=== PATIENT | female | born 1980 | race Caucasian/White ===

== ENCOUNTER 2017-07-20 17:37 | Emergency (ER) | payer MEDICAID ==
[2017-07-20] MEDS ORDERED: 0.9 % SODIUM CHLORIDE 1,000 ML BAG IV ONE (18:02)
--- NOTE | 2017-07-20 18:03 | Emergency Department Record ---
History of Present Illness - General Source: Patient Mode of Arrival: Ambulatory - History of Present Illness Initial comments: patient started having vomiting and diarrhea for 3 days and she has abdominal pain. Yesterday vomiting times 15 and diarrhea times 4 and same 2 days ago. Stools are black, no peptobismal, Patient denies vomiting blood or black material. Onset/Timin -: Days(s) Severity: Moderate Consistency: Intermittent, Getting worse Improves with: None Worsens with: None - Fanny Coma Scale Eye Response: (4) Open spontaneously Motor Response: (6) Obeys commands Verbal Response: (5) Oriented Priddy Total: 15 <Black Martínez - Last Filed: 07/20/17 19:17> <Yari Thornton - Last Filed: 07/20/17 20:41> - General Chief complaint: Dehydration Stated complaint: FEELS FAINT Time Seen by Provider: 07/20/17 17:57 - Related Data Home Medications Medication Instructions Recorded Confirmed Last Taken Escitalopram Oxalate [Lexapro] 20 mg PO DAILY 07/20/17 07/20/17 07/20/17 Hydroxyzine Pamoate [Vistaril] 25 mg PO Q6H 07/20/17 07/20/17 07/20/17 Allergies Allergy/AdvReac Type Severity Reaction Status Date / Time Penicillins Allergy HIVES Verified 07/20/17 17:46 Travel Screening - Travel/Exposure Within Last 30 Days Have you traveled within the last 30 days?: No - Travel/Exposure Within Last Year Have you traveled outside the [place] in the last year?: No - Additonal Travel Details Have you been exposed to anyone with a communicable illness?: No - Travel Symptoms Symptom Screening: None <Black Martínez - Last Filed: 07/20/17 19:17> Review of Systems Reviewed: No additional complaints except as noted below Constitutional: Reports: As per HPI. Denies: Chills, Fever, Malaise, Night sweats, Weakness, Weight change Eyes: Reports: As per HPI. Denies: Eye discharge, Eye pain, Photophobia, Vision change ENT: Reports: As per HPI. Denies: Congestion, Dental pain, Ear pain, Epistaxis , Hearing loss, Throat pain Respiratory: Reports: As per HPI. Denies: Cough, Dyspnea, Hemoptysis, Stridor, Wheezes Cardiovascular: Reports: As per HPI. Denies: Arrhythmia, Chest pain, Dyspnea on exertion, Edema, Murmurs, Orthopnea, Palpitations, Paroxysmal nocturnal dyspnea, Rheumatic Fever, Syncope Endocrine: Reports: As per HPI. Denies: Fatigue, Heat or cold intolerance, Polydipsia, Polyuria Gastrointestinal: Reports: As per HPI, Abdominal pain, Diarrhea, Vomiting. Denies: Constipation, Hematemesis, Hematochezia, Melena, Nausea Genitourinary: Reports: As per HPI. Denies: Abnormal menses, Discharge, Dyspareunia, Dysuria, Frequency, Hematuria, Incontinence, Retention, Urgency Musculoskeletal: Reports: As per HPI. Denies: Arthralgia, Back pain, Gout, Joint swelling, Myalgia, Neck pain Skin: Reports: As per HPI. Denies: Bruising, Change in color, Change in hair/ nails, Lesions, Pruritus, Rash Neurological: Reports: As per HPI. Denies: Abnormal gait, Confusion, Headache, Numbness, Paresthesias, Seizure, Tingling, Tremors, Vertigo, Weakness Psychiatric: Reports: As per HPI. Denies: Anxiety, Auditory hallucinations, Depression, Homicidal thoughts, Suicidal thoughts, Visual hallucinations Hematological/Lymphatic: Reports: As per HPI. Denies: Anemia, Blood Clots, Easy bleeding, Easy bruising, Swollen glands <Black Martínez - Last Filed: 07/20/17 19:17> Past Medical History - SOCIAL HISTORY Smoking Status: Former smoker Alcohol Use: Occasional Drug Use: None - RESPIRATORY Hx Respiratory Disorders: No - CARDIOVASCULAR Hx Cardio Disorders: No - NEURO Hx Neuro Disorders: No - GI Hx GI Disorders: No - Hx Genitourinary Disorders: No - ENDOCRINE Hx Endocrine Disorders: No - MUSCULOSKELETAL Hx Musculoskeletal Disorders: No - PSYCH Hx Psych Problems: Yes Hx Anxiety: Yes - HEMATOLOGY/ONCOLOGY Hx Hematology/Oncology Disorders: Yes Hx Anemia: Yes <Black Martínez - Last Filed: 07/20/17 19:17> Family Medical History Any Significant Family History?: No <Black Martínez - Last Filed: 07/20/17 19:17> Physical Exam - General General Appearance: Alert, Oriented x3, Cooperative, Mild distress - Head Head exam: Normal inspection - Eye Eye exam: Normal appearance, PERRL Pupils: Normal accommodation - ENT ENT exam: Normal exam, Mucous membranes moist, Normal external ear exam, Normal orophraynx, TM's normal bilaterally Ear exam: Normal external inspection. negative: External canal tenderness Nasal Exam: Normal inspection. negative: Discharge, Sinus tenderness Mouth exam: Normal external inspection, Tongue normal Teeth exam: Normal inspection. negative: Dental caries Throat exam: Normal inspection. negative: Tonsillar erythema, Tonsillar exudate - Neck Neck exam: Normal inspection, Full ROM. negative: Tenderness - Respiratory Respiratory exam: Normal lung sounds bilaterally. negative: Respiratory distress - Cardiovascular Cardiovascular Exam: Regular rate, Normal rhythm, Normal heart sounds - GI/Abdominal GI/Abdominal exam: Soft, Guarding, Hypoactive bowel sounds, Tenderness ( periumbilical ). negative: Distended, Mass, Rebound, Rigid - Rectal Rectal exam: Black stool (brown black mucousy stools , hemoccult positive) - exam: Deferred - Extremities Extremities exam: Normal inspection, Full ROM, Normal capillary refill. negative: Tenderness - Back Back exam: Reports: Normal inspection, Full ROM. Denies: Muscle spasm, Rash noted, Tenderness - Neurological Neurological exam: Alert, Normal gait, Oriented X3, Reflexes normal - Psychiatric Psychiatric exam: Normal affect, Normal mood - Skin Skin exam: Dry, Intact, Normal color, Warm <Black Martínez A - Last Filed: 07/20/17 19:17> Course Vital Signs 07/20/17 17:49 Temperature 98.3 F Pulse Rate 104 H Respiratory 20 Rate Blood Pressure 110/72 Pulse Ox [address] Thornton at 7 pm - Reevaluation(s) Reevaluation #1: patient pregnacy test positive and patient unaware of pregnacy and upon talking to her she states bleeding on and off since march. heavy bleeding last month and some vaginal bleeding 3-4 days ago. 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 07/20/17 19:17 <Black Martínez - Last Filed: 07/20/17 19:17> Vital Signs 07/20/17 07/20/17 07/20/17 17:49 18:51 19:22 Temperature 98.3 F Pulse Rate 104 H Pulse Rate [ 129 H 125 H Pulse Ox Probe] Respiratory 20 20 20 Rate Blood Pressure 110/72 Blood Pressure 117/69 124/80 [Right Arm] Pulse Ox 100 100 100 - Reevaluation(s) Reevaluation #2: 07/20/17 20:36 d/w dr radford, surgeon and dr green who accepted pt Reevaluation #3: 07/20/17 20:40 my reeval reveals rigid abd <Yari Thornton - Last Filed: 07/20/17 20:41> Medical Decision Making - Lab Data Result diagrams: 07/20/17 17:40 07/20/17 17:40 <Black Martínez - Last Filed: 07/20/17 19:17> - Lab Data Result diagrams: 07/20/17 17:40 07/20/17 17:40 Lab Results 07/20/17 07/20/17 07/20/17 Range/Units 17:40 17:40 17:40 WBC 19.7 H (4.2-12.2) K/uL RBC 1.98 L (3.80-5.40) M/uL Hgb 6.7 L* (11.6-16.0) gm/dl Hct 18.6 L (35.0-47.0) % MCV 93.9 (81-97) fl MCH 33.8 H (27-33) pg MCHC 36.0 (32-36) g/dl RDW 11.3 L (11.5-14.5) % Plt Count 179 (130-400) K/uL MPV 11.0 H (7.4-10.4) fl Neutrophils % 82.0 H (47-80) % Eosinophils % Not Reportable Basophils % Not Reportable Lymphocytes 12.0 L (16-45) % Monocytes 6.0 (0-9) % PT (9.5-12.1) SECONDS INR APTT (24.5-39.1) SECONDS Sodium 134 L (136-145) mmol/L Potassium 3.7 (3.4-4.5) mmol/L Chloride 93 L (98-107) mmol/L Carbon Dioxide 18.0 L (22-29) mmol/L Anion Gap 23.0 H (7-16) BUN 47 H (6-20) mg/dL Creatinine 1.7 H (0.5-0.9) mg/dL Estimated GFR 36 mL/min Random Glucose 118 H (74-109) mg/dL Lactic Acid (0.5-2.2) mmol/L Calcium 8.0 L (8.6-10.0) mg/dL Total Bilirubin 0.60 (0.2-1.0) mg/dL Direct Bilirubin < 0.2 (0-0.3) mg/dL AST 261 H (10.0-35.0) U/L ALT 182 H (<33) U/L Alkaline Phosphatase 72 (35-104) U/L Total Protein 7.0 (6.6-8.7) g/dL Albumin 4.3 (4.0-5.0) g/dL Lipase 31 (13-60) U/L Serum HCG, Qual Positive H (NEGATIVE) Stool Occult Blood ABO Group Rh Factor Antibody Screen (NEGATIVE) 07/20/17 07/20/17 07/20/17 Range/Units 18:12 18:15 18:40 WBC (4.2-12.2) K/uL RBC (3.80-5.40) M/uL Hgb (11.6-16.0) gm/dl Hct (35.0-47.0) % MCV (81-97) fl MCH (27-33) pg MCHC (32-36) g/dl RDW (11.5-14.5) % Plt Count (130-400) K/uL MPV (7.4-10.4) fl Neutrophils % (47-80) % Eosinophils % Basophils % Lymphocytes (16-45) % Monocytes (0-9) % PT (9.5-12.1) SECONDS INR APTT (24.5-39.1) SECONDS Sodium (136-145) mmol/L Potassium (3.4-4.5) mmol/L Chloride (98-107) mmol/L Carbon Dioxide (22-29) mmol/L Anion Gap (7-16) BUN (6-20) mg/dL Creatinine (0.5-0.9) mg/dL Estimated GFR mL/min Random Glucose (74-109) mg/dL Lactic Acid 2.4 H (0.5-2.2) mmol/L Calcium (8.6-10.0) mg/dL Total Bilirubin (0.2-1.0) mg/dL Direct Bilirubin (0-0.3) mg/dL AST (10.0-35.0) U/L ALT (<33) U/L Alkaline Phosphatase (35-104) U/L Total Protein (6.6-8.7) g/dL Albumin (4.0-5.0) g/dL Lipase (13-60) U/L Serum HCG, Qual (NEGATIVE) Stool Occult Blood Positive ABO Group O Rh Factor Negative Antibody Screen Negative (NEGATIVE) 07/20/17 Range/Units 19:40 WBC (4.2-12.2) K/uL RBC (3.80-5.40) M/uL Hgb (11.6-16.0) gm/dl Hct (35.0-47.0) % MCV (81-97) fl MCH (27-33) pg MCHC (32-36) g/dl RDW (11.5-14.5) % Plt Count (130-400) K/uL MPV (7.4-10.4) fl Neutrophils % (47-80) % Eosinophils % Basophils % Lymphocytes (16-45) % Monocytes (0-9) % PT 10.6 (9.5-12.1) SECONDS INR 0.98 APTT 20.30 L (24.5-39.1) SECONDS Sodium (136-145) mmol/L Potassium (3.4-4.5) mmol/L Chloride (98-107) mmol/L Carbon Dioxide (22-29) mmol/L Anion Gap (7-16) BUN (6-20) mg/dL Creatinine (0.5-0.9) mg/dL Estimated GFR mL/min Random Glucose (74-109) mg/dL Lactic Acid (0.5-2.2) mmol/L Calcium (8.6-10.0) mg/dL Total Bilirubin (0.2-1.0) mg/dL Direct Bilirubin (0-0.3) mg/dL AST (10.0-35.0) U/L ALT (<33) U/L Alkaline Phosphatase (35-104) U/L Total Protein (6.6-8.7) g/dL Albumin (4.0-5.0) g/dL Lipase (13-60) U/L Serum HCG, Qual (NEGATIVE) Stool Occult Blood ABO Group Rh Factor Antibody Screen (NEGATIVE) <Yari Thornton - Last Filed: 07/20/17 20:41> Disposition Time of Disposition: 19:22 <Tanya,Black A - Last Filed: 07/20/17 19:17> Disposition: Transfer Transfer To: [facility] Reason For Transfer: acute abdomen Accepting Physician: justin radford and peter Time Discussed w/Accepting Physician: 20:39 <Yari Thornton - Last Filed: 07/20/17 20:41> Clinical Impression: Vaginal bleeding, Acute abdomen Vomiting Qualifiers: Vomiting type: unspecified Vomiting Intractability: unspecified Nausea presence : with nausea Qualified Code(s): R11.2 - Nausea with vomiting, unspecified Diarrhea Qualifiers: Diarrhea type: unspecified type Qualified Code(s): R19.7 - Diarrhea, unspecified Qualifiers: Weeks of gestation: unspecified Qualified Code(s): Z34.90 - Encounter for supervision of normal , unspecified, unspecified trimester Anemia Qualifiers: Anemia type: unspecified type Qualified Code(s): D64.9 - Anemia, unspecified Disposition: [facility] Transfer Forms: Patient Portal Access Quality - Blood Pressure Screening Does Patient Have Any of the Following: No Blood Pressure Classification: Normal BP Reading Systolic Measurement: 110 Diastolic Measurement: 72 Screening for High Blood Pressure: < Normal BP, F/U Not Required > [G8783] <Black Martínez A - Last Filed: 07/20/17 19:17> - Quality Measures Quality Measures: N/A - Blood Pressure Screening Does Patient Have Any of the Following: No Blood Pressure Classification: Normal BP Reading Systolic Measurement: 110 Diastolic Measurement: 72 Screening for High Blood Pressure: < Normal BP, F/U Not Required > [G8783] <Yari Thornton - Last Filed: 07/20/17 20:41>
[2017-07-20] MEDS: ONDANSETRON HCL IV 4 MG/2 ML VIAL IV ONE (18:08)
[2017-07-20 18:15] LABS: HEMATOCRIT 18.6 % (35.0-47.0); MEAN CELL VOLUME 93.9 fl (81-97); MEAN CORPUSCULAR HEMOGLOBIN 33.8 pg (27-33); PLATELET COUNT 179 K/uL (130-400); RED BLOOD COUNT 1.98 M/uL (3.80-5.40); RED CELL DISTRIBUTION WIDTH 11.3 % (11.5-14.5); WHITE BLOOD COUNT W/O DIFF 19.7 K/uL (4.2-12.2)
[2017-07-20 18:23] LABS: HEMOGLOBIN 6.7 gm/dl (11.6-16.0)
[2017-07-20 18:29] LABS: ALBUMIN 4.3 g/dL (4.0-5.0); ALKALINE PHOSPHATASE 72 U/L (35-104); ALT/SGPT 182 U/L (<33); AST/SGOT 261 U/L (10.0-35.0); BLOOD UREA NITROGEN 47 mg/dL (6-20); CREATININE 1.7 mg/dL (0.5-0.9); EST GLOMERULAR FILTRATION RATE 36 mL/min; GLUCOSE,RANDOM 118 mg/dL (74-109); LIPASE 31 U/L (13-60)
[2017-07-20 18:34] LABS: BILIRUBIN,DIRECT < 0.2 mg/dL (0-0.3)
[2017-07-20 19:19] LABS: ABO GROUP O; RH TYPE NEGATIVE
[2017-07-20 19:27] LABS: ANTIBODY SCREEN NEGATIVE (NEGATIVE)
[2017-07-20 19:36] LABS: IMMED. SPIN CROSSMATCH COMPATIBLE
[2017-07-20 20:19] LABS: INR 0.98; PARTIAL THROMBOPLASTIN TIME 20.3 SECONDS (24.5-39.1); PROTHROMBIN TIME (PATIENT) 10.6 SECONDS (9.5-12.1)
[2017-07-20] MEDS: RHO(D) IMMUNE GLOBULIN 1,500 UNIT DISP.SYRIN IM ONE (20:47)
--- NOTE | 2017-07-22 06:12 | ULTRASOUND REPORT ---
DATE: 07/20/2017. EXAM: PELVIC ULTRASOUND. HISTORY: Vomiting. TECHNIQUE: Transvaginal, transabdominal sonographic evaluation of the pelvis was performed using grayscale imaging with the addition of color flow Doppler and spectral analysis. FINDINGS: The uterus is normal in position. The uterus measures 7.4 x 3.3 x 5.6 cm. The endometrial stripe measures 4.0 mm. The ovaries are not well visualized due to pelvic ascites. IMPRESSION: NO GROSS ABNORMALITIES WITHIN THE UTERUS. THE OVARIES ARE NOT VISUALIZED DUE TO PELVIC ASCITES. THERE APPEARS TO BE HYPERDENSE OR COMPLEX FLUID IN THE PELVIS. CT MAY BE OF BENEFIT FOR BETTER EVALUATION. JOB NUMBER: [id number] MTDD
== END 2017-07-20 20:42 | disposition short-term general hospital (02) ==
LOC: ER 17:37
DX: R19.35 Periumbilic abdominal rigidity (principal); N93.9 Abnormal uterine and vaginal bleeding, unspecified; D64.9 Anemia, unspecified; R55 Syncope and collapse; R11.2 Nausea with vomiting, unspecified; R19.7 Diarrhea, unspecified; R19.5 Other fecal abnormalities; R06.02 Shortness of breath; Z33.1 Pregnant state, incidental; Z3A.00 Weeks of gestation of pregnancy not specified
CPT/HCPCS: 99285 ×2; 36430; 96374; 96372; 83605; 83690; 85730; 85610; 80076; 84702; 80048; 84703; 82272; 85027; 86900; 86901; 86850; 76856; 76830; P9016; J2405; J2790